=== PATIENT | female | born 1955 | race Caucasian/White ===

== ENCOUNTER → 2017-10-26 | Outpatient (CLI) | payer BC ==
[~2017-10-26] MED LIST: CENTRUM SILVER1 CTB PO; COUMADIN 3MG3 MG/TAB PO; COUMADIN 5MG5 MG/TAB PO; COUMADIN1 MG PO; DICLOFENAC; FE-TABS325 MG PO; FOLIC ACID 40400 MCG PO; FOLIC ACID0.4 MG PO; LEVOTHYROXINE PO; MILK OF MA400 MG/5 M PO; NORCO 325 MG-7.1 TAB PO; NORVASC2.5 MG PO; OXY IR5 MG PO; PAMINE2.5 MG PO; PROBIOTIC FORMU1 CAP PO; RESTASIS0.05% OP; SENOKOT8.6 MG PO; SYNTHROID0.125 MG/T PO; VITAMIN C BUFF500 MG PO; VITAMIN C PO; XARELTO10 MG PO; ZOCOR; ZOCOR 40MG40 MG PO
== END ==
LOC: MC.RAD 09:36
DX: Z12.31 Encounter for screening mammogram for malignant neoplasm of breast (principal)

== ENCOUNTER → 2018-11-14 | Outpatient (CLI) | payer BC | LOC: MC.RAD 14:50 | DX: Z12.31 Encounter for screening mammogram for malignant neoplasm of breast (principal) ==

== ENCOUNTER → 2020-09-30 | Outpatient (CLI) | payer BC | LOC: MC.RAD 08:53 | DX: Z12.31 Encounter for screening mammogram for malignant neoplasm of breast (principal) ==

== ENCOUNTER → 2021-05-13 | Outpatient (CLI) | payer BC | LOC: COL.RAD 10:58 | DX: M34.9 Systemic sclerosis, unspecified (principal); K80.20 Calculus of gallbladder without cholecystitis without obstruction; I77.810 Thoracic aortic ectasia ==

== ENCOUNTER → 2023-02-16 | Outpatient (CLI) | payer MEDICARE | LOC: CANSCHCLI → MC.RAD 02-09 09:15 | DX: Z12.31 Encounter for screening mammogram for malignant neoplasm of breast (principal) ==